=== PATIENT | male | born 1945 | race Caucasian/White ===

== ENCOUNTER → 2016-05-14 | Outpatient (CLI) | payer OTHER ==
[~2016-05-14] MED LIST: ARANESP INJECTION; ATROVENT HFA14 GM INH; CALCITRIOL0.25 MCG PO; CARAFATE 1 GM TA1 G1 PO; CENTRUM SILVER1 EAC2 PO; DAKIN'S473 M1 TOP; DIFLUCAN200 MG PO; DUONEB 2.5-0.5 M3 ML INH; EXELON1 EAC2 TRANSDERM; FOLIC ACID1 MG PO; GABAPENTIN 100100 MG PO; HALDOL 0.5 MG0.5 M1 PO; HALDOL 0.5 MG0.5 MG PO; HALOPERIDOL 2 MG2 M1 PO; HALOPERIDOL5 MG/1 M1 IM; HEPARIN SO5000 UNIT2 SUBQ; IRON325 PO; LIPITOR 20 MG T20 M1 PO; MEROPENEM-500 MG/50 IVPB; MUCINEX TA600 MG/TA2 PO; MYCAMINE100 MG IVPB; NORVASC5 MG PO; NOVASOURCE REN237 ML PO; NOVOLOG100 UNIT/1 SUBQ; NOVOLOG100 UNIT/M SUBQ; PROBIOTIC1 EAC1 PO; PROTONIX40 M1 PO; RENVELA800 MG PO; SILVADENE20 GM TP; SODIUM CHLORIDE IV; TYLENOL325 MG PO; UNICOMPLEX M TA1 TA1 PO; VANCO 500500 MG/100 IVPB; VENOFER100 MG/51 IV PUSH; ZYVOX600 MG/300 IVPB; [UNRECOGNIZED DRUG - OTHER] TP
[2016-05-14 07:50] VITALS: BP 141/47
[2016-05-14 12:30] VITALS: BP 141/47
== END ==
LOC: SPEC 07:42
DX: Z49.01 Encounter for fitting and adjustment of extracorporeal dialysis catheter (principal); E78.00 Pure hypercholesterolemia, unspecified; F41.8 Other specified anxiety disorders; E11.22 Type 2 diabetes mellitus with diabetic chronic kidney disease; I12.0 Hypertensive chronic kidney disease with stage 5 chronic kidney disease or end stage renal disease; N18.6 End stage renal disease; D64.89 Other specified anemias; I47.1 Supraventricular tachycardia; K21.9 Gastro-esophageal reflux disease without esophagitis; Z89.512 Acquired absence of left leg below knee; Z86.14 Personal history of Methicillin resistant Staphylococcus aureus infection; Z86.19 Personal history of other infectious and parasitic diseases

== ENCOUNTER 2016-05-28 05:10 | Day surgery (SDC) | payer OTHER ==
[~2016-05-28] VITALS: Ht 175.3 cm; Wt 70.4 kg
--- NOTE | ~2016-05-28 | S ---
[facility] [place] [place] [address] SURGICAL PATH RPT PROCEDURE Name: ROSE GUNTER Ciara Room #: DEP [facility]..#: [id number] Admission: 05/28/16 Date of : 43 Discharge: 05/28/16 Report #: [id number] Path Case #: [id number] PATHOLOGY REPORT COLLECTION DATE: 05/28/2016 RECEIVED DATE: 05/28/2016 SUBMITTING PHYS: Dr. Dave Ruano OTHER PHYS: SPECIMEN(S) RECEIVED: A.Debridement - sacral wound * * * * * * * * * * * * FINAL DIAGNOSIS: Sacral wound debridement: - Marked acute inflammation along with fibrinoid necrosis, consistent with debridement tissue. (IUV:csd; d/t: 05/29/2016) PATHOLOGIST: Radha Sutherland M.D. REPORT ELECTRONICALLY SIGNED BY: Radha Sutherland M.D. DATE/TIME: 05/29/2016 13:20 * * * * * * * * * * * * GROSS PATHOLOGY: The specimen is received in formalin labeled "Rose Gunter, julianna," and additionally labeled on the requisition as, "debridement sacral wound". Received are multiple segments of pink-paul to reynoso-paul soft tissue with attached pale paul to focally necrotic skin measuring 5.1 x 4.2 x 1.2 cm in aggregate dimensions. The specimen is submitted representatively in cassette A1. (CAA; 05/28/2016) CLINICAL HISTORY: Sacral wound stage IV INITIAL CPT CODE(S): A; 37385 Professional services performed by [facility] at [facility] [address] [place] [address] Technical services performed by [facility] at [address] [place] [id number]. [facility] [address] [place] [address] SURGICAL PATH RPT PROCEDURE Name: ROSE GUNTER Room #: DEP [facility] Mario#: [id number] Admission: 05/28/16 Date of : 43 Discharge: 05/28/16 Report #: [id number] Path Case #: [id number] [address] PHONE: [phone] DIRECTOR: Asif Driscoll M.D. * * * END OF REPORT * * *
--- NOTE | ~2016-05-28 | O ---
[facility] [place] [address] OPERATIVE REPORT Name: ROSE GUTHRIE Room #: DEP [facility]#: [id number] Admission: 05/28/16 Attend Phys: Dave Ruano MD, F Discharge: 05/28/16 Date of : 43 Report #: [id number] THIS REPORT FOR: //name// CC: THAD physician/PCP Dave Ruano DATE OF SERVICE: 05/28/2016 DATE OF PROCEDURE: 05/28/2016. 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 POSTOPERATIVE DIAGNOSIS: Stage IV sacral decubitus ulcer with necrotic skin and subcutaneous tissue. PROCEDURE: Excision of necrotic tissue, skin and subcutaneous tissue of stage IV sacral decubitus ulcer with pulse irrigation therapy. SURGEON: Dave Ruano M.D. MUNICIPAL CLERK: Benji Hood MS3. INDICATIONS: A 71-year-old male with significant vascular disease, end-stage renal disease and a large 16-cm diameter sacral decubitus ulcer that is intermittently contaminated with fecal material, with some necrosis of the skin margins and underlying subcutaneous tissue, requiring debridement. OPERATIVE PROCEDURE: The patient had a discussion of the procedure. His brother who is the closest relative and performs durable power of attorney law clerk functions for the patient was contacted and gave permission to proceed for debridement of necrotic tissue. The patient was brought to the operating room and had satisfactory induction of general endotracheal anesthesia. He was turned to the prone position. After sterile paint around the wound with Betadine solution was performed, mechanical debridement with a lap tape was performed. Necrotic skin and necrotic subcutaneous tissue was then excised. This entailed a mass of tissue, approximately 10 x 2 x 2 cm in greatest dimensions. All was excised sharply. The muscle fascia and the bony tissues appeared to be satisfactory with some satisfactory granulation tissue. After hemostasis was achieved with electrocautery of the excised necrotic tissue, the pulse irrigation was utilized for the entire wound. This freshened the underlying granulation tissue, so it all had some good satisfactory bleeding. The margins were again cauterized to control any evidence of bleeding from the necrotic skin and subcutaneous tissue excision margins. The wound was packed with one Kerlix soaked with saline. The estimated blood loss was 5 mL or less. The patient tolerated the procedure well and returned to the recovery room in stable and satisfactory condition. The excised tissue comprised skin and [address] [address] OPERATIVE REPORT Name: ROSE GUTHRIE Ciara [id number]mission: 05/28/16 Attend Phys: Dave Ruano MD, F Discharge: 05/28/16 Date of : 43 Report #: [id number] subcutaneous tissue, which were necrotic at the margins. The patient's brother was contacted from recovery and discussion was instituted for possible need for a diverting colostomy. <ELECTRONICALLY SIGNED> By: Dave Ruano MD, FACS 05/29/16 1737 1135 1207 Dave uRano MD, FACS /nt
[2016-05-28 10:00] VITALS: BP 140/71
[2016-05-28 10:00] LABS: CALCIUM 9.4 mg/dL (8.5-10.1); CREATININE 5.1 mg/dL (0.6-1.3); POTASSIUM 5.7 mmol/L (3.5-5.1)
== END 2016-05-28 13:00 ==
LOC: TBA 05:10 → OR 05:10
PROVIDERS: Surgery
DX: L89.154 Pressure ulcer of sacral region, stage 4 (principal); N18.6 End stage renal disease; Z99.2 Dependence on renal dialysis; J90 Pleural effusion, not elsewhere classified; D64.89 Other specified anemias
CPT/HCPCS: 50010; 50101; 50386; 50403; 53353; 53354; 62110; 62900; 70005

== ENCOUNTER 2016-11-13 08:23 | Day surgery (SDC) | payer OTHER ==
[~2016-11-13] VITALS: Ht 175.3 cm; Wt 65.3 kg
--- NOTE | ~2016-11-13 | S ---
[facility] [place] [address] SURGICAL PATH RPT PROCEDURE Name: ROSE GUNTER Ciara Room #: DEP [facility].#: [id number] Admission: 11/13/16 Date of : 43 Discharge: 11/13/16 Report #: [id number] Path Case #: [id number] PATHOLOGY REPORT COLLECTION DATE: 11/13/2016 RECEIVED DATE: 11/13/2016 SUBMITTING PHYS: Dr. Dave Ruano OTHER PHYS: Dr. Ifeoma Valdez SPECIMEN(S) RECEIVED: A.Stage 4 desacral decubitus ulcer * * * * * * * * * * * * FINAL DIAGNOSIS: Stage 4 desacral decubitus ulcer, debridement: - Marked acute inflammation involving the surface epithelium, subdermis, and subcutaneous tissue, consistent with the findings of a decubitus ulcer. - Gangrenous necrosis. (IUV:mgr; 11/15/2016) PATHOLOGIST: Radha Sutherland M.D. REPORT ELECTRONICALLY SIGNED BY: Radha Sutherland M.D. DATE/TIME: 11/15/2016 16:34 * * * * * * * * * * * * GROSS PATHOLOGY: The specimen is received in formalin, labeled "Rose Gunter, debridement tissue, stage IV desacral decubitus ulcer". Received are multiple segments of pale tanpink, fibrous soft tissue ranging in size from 0.5 cm to 3.8 cm. Sectioning reveals no solid masses or nodules. Trench Digging Machine Operator sections are submitted in cassette A1. (SNA; 11/14/2016) CLINICAL HISTORY: Sacral decubitus ulcer, stage IV INITIAL CPT CODE(S): A; 28480 Professional services performed by [facility] at [facility] [address], [place] [address] Technical services performed by [facility] at [address] [place] [address]. [facility] [address] [place] [address] SURGICAL PATH RPT PROCEDURE Name: ROSE GUNTER Room #: [facility].#: [id number] Admission: 11/13/16 Date of : 43 Discharge: 11/13/16 Report #: [id number] Path Case #: [id number] [facility] [address] [place] [address] PHONE: [phone] DIRECTOR: Asif Driscoll M.D. * * * END OF REPORT * * *
--- NOTE | ~2016-11-13 | EKG ---
[address] [address] ELECTROCARDIOGRAM REPORT Name: ROSE GUTHRIE Room #: [facility]#: [id number] Admission: 11/13/16 Attend Phys: Dave Ruano MD, F Discharge: 11/13/16 Date of : 43 Report #: [id number] THIS REPORT FOR: //name// [facility] Test Date: 2016-11-13 Test Time: 10:49:29 Pat Name: ROSE GUTHRIE Department: Room: 150 10 Gender: M Circulating Process Inspector: JERAMIE : 1945 Requested By: Dave Ruano Order Number: [id number] MD: Jose Watson Measurements Intervals [place] Rate: 72 P: 0 NE: 150 QRS: 43 QRSD: 108 T: 61 QT: 424 QTc: 465 Interpretive Statements Sinus rhythm Nonspecific T abnrm, anterolateral leads Compared to ECG 04/16/2016 09:44:49 Atrial premature complex(es) no longer present low voltage in the lateral leads now present Electronically Signed On 11-13-2016 18:13:51 CDT by Jose Watson [email or web address] <ELECTRONICALLY SIGNED> By: Jose Watson MD, [facility] 11/13/16 1813 1049 1049 Jose Watson MD, [facility] /EPI
[~2016-11-13 08:23] MED LIST changes: +ARANESP 6060 MCG/0.3 SUBQ; +CLONIDINE HCL0.1 MG PO; +GUAIFENESIN ER600 MG PO; +HEPARIN 1,100 UNIT/1 IV; +HEPARIN 5 U1 UNIT/ML SUBQ; +MELATONIN3 MG PO; +METOPROLOL5 MG/5 M2 IV PUSH; +MULTIVITAMINS1 EAC7 PO; +NEPRO CARB STE237 ML PO; +PIPERACIL-TAZ2.25 GM IVPB; +RENAGEL400 MG PO; +VENOFER100 MG/51 IVPB; +WELLBUTRIN 75 M75 M1 PO
[2016-11-13 11:32] LABS: CALCIUM 9.2 mg/dL (8.5-10.1); CREATININE 3.5 mg/dL (0.7-1.3); POTASSIUM 4.5 mmol/L (3.5-5.1)
[2016-11-13 11:38] LABS: TOTAL BILIRUBIN 0.3 mg/dL (<0.1-1.0); TOTAL PROTEIN 6.8 g/dL (6.4-8.2)
[2016-11-13 13:28] VITALS: BP 148/68
== END 2016-11-13 16:37 ==
LOC: OR 08:23 → TBA 08:23 → OR 09:16
PROVIDERS: Surgery
DX: L89.154 Pressure ulcer of sacral region, stage 4 (principal); I12.0 Hypertensive chronic kidney disease with stage 5 chronic kidney disease or end stage renal disease; N18.6 End stage renal disease; E10.22 Type 1 diabetes mellitus with diabetic chronic kidney disease; D64.9 Anemia, unspecified; E78.00 Pure hypercholesterolemia, unspecified; F41.8 Other specified anxiety disorders; F32.89 Other specified depressive episodes; B19.20 Unspecified viral hepatitis C without hepatic coma; Z98.890 Other specified postprocedural states; Z79.4 Long term (current) use of insulin; Z79.899 Other long term (current) drug therapy
CPT/HCPCS: 50010; 50101; 50403; 53353; 53354; 62110; 62900; 70005